=== PATIENT | male | born 2000 ===

== ENCOUNTER 2019-06-10 11:59 | Emergency (ER) | payer BC ==
--- NOTE | 2019-06-10 14:33 | EDM.PDOC ---
ED HPI GENERAL MEDICAL PROBLEM - General Chief Complaint: Gastrointestinal Problem Stated Complaint: VOMITTING BLOOD Time Seen by Provider: 06/10/19 13:33 - History of Present Illness INITIAL COMMENTS - FREE TEXT/NARRATIVE: 18-year-old gentleman no medical problems presenting to ED for bloody emesis. Patient had one episode of vomiting, red. Never happened to him before. After he vomited he felt right lower rib cage pain. The pain is described as mild. He denies any chest pain, denies shortness of breath, denies any dizziness. Of note the patient was drinking pink Gatorade before the episode of emesis. The patient does not recall any exacerbating or mitigating factors. Events occurred prior to arrival. right ribs Pain Score (Numeric/FACES): 5 - Related Data Allergies Allergy/AdvReac Type Severity Reaction Status Date / Time Tussins Allergy Severe Airway Uncoded 08/03/15 23:13 Tightness steroids Allergy Other Uncoded 06/10/19 12:36 Home Meds: Home Meds RX: Topiramate 50 mg PO BID 06/10/19 [History] Past Medical History Neurological History: Reports: Head Trauma, Other (See Below) Other Neuro History: Benign Brain Tumor Social & Family History - Family History Family Medical History: Noncontributory - Tobacco Use Smoking Status *Q: Never Smoker - Recreational Drug Use Recreational Drug Use: No ED ROS GENERAL - Review of Systems Review Of Systems: See Below Constitutional: Reports: No Symptoms HEENT: Reports: No Symptoms Respiratory: Reports: No Symptoms Cardiovascular: Reports: No Symptoms Endocrine: Reports: No Symptoms GI/Abdominal: Reports: Hematemesis : Reports: No Symptoms Musculoskeletal: Reports: Muscle Pain Skin: Reports: No Symptoms Neurological: Reports: No Symptoms Psychiatric: Reports: No Symptoms Hematologic/Lymphatic: Reports: No Symptoms Immunologic: Reports: No Symptoms ED EXAM, GI/ABD - Physical Exam Exam: See Below Text/Narrative:: The patient did not have any significant tenderness to palpation in the chest wall. He showed me a picture of the emesis, it was a small amount of light red emesis. No more than 20 to 30 cc. The patient appears comfortable in no distress speaking to his computer networker. During the examination he was smiling and in a good mood. Exam Limited By: No Limitations General Appearance: Alert, No Apparent Distress Head: Atraumatic Neck: Supple, Non-Tender Respiratory/Chest: Lungs Clear, Normal Breath Sounds, No Accessory Muscle Use, Chest Non-Tender Cardiovascular: Normal Peripheral Pulses, Regular Rate, Rhythm, No Gallop, No JVD, No Murmur, No Rub GI/Abdominal Exam: Soft, Non-Tender (Male) Exam: Deferred Rectal (Males) Exam: Normal Exam, Other (Brown Hemoccult negative stool) Back Exam: Normal Inspection Extremities: Normal Inspection Course - Vital Signs Last Recorded V/S: Last Vital Signs Temp 97.5 F 06/10/19 12:34 Pulse 58 L 06/10/19 12:34 Resp 18 06/10/19 12:34 BP 135/60 06/10/19 12:34 Pulse Ox 98 06/10/19 12:34 - Orders/Labs/Meds Labs: Laboratory Tests 06/10/19 06/10/19 Range/Units 14:22 14:22 WBC 7.31 (4.0-11.0) K/uL RBC 4.92 (4.50-5.90) M/uL Hgb 14.9 (13.0-17.0) g/dL Hct 44.8 (38.0-50.0) % MCV 91.1 (80.0-98.0) fL MCH 30.3 (27.0-32.0) pg MCHC 33.3 (31.0-37.0) g/dL RDW Std Deviation 41.4 (28.0-62.0) fl RDW Coeff of Julien 12 (11.0-15.0) % Plt Count 234 (150-400) K/uL MPV 9.50 (7.40-12.00) fL Neut % (Auto) 54.1 (48.0-80.0) % Lymph % (Auto) 33.0 (16.0-40.0) % [place] % (Auto) 8.6 (0.0-15.0) % Eos % (Auto) 4.2 (0.0-7.0) % Baso % (Auto) 0.1 (0.0-1.5) % Neut # (Auto) 4.0 (1.4-5.7) K/uL Lymph # (Auto) 2.4 (0.6-2.4) K/uL [place] # (Auto) 0.6 (0.0-0.8) K/uL Eos # (Auto) 0.3 (0.0-0.7) K/uL Baso # (Auto) 0.0 (0.0-0.1) K/uL Nucleated RBC % 0.0 /100WBC Nucleated RBCs # 0 K/uL Sodium 141 (136-148) mmol/L Potassium 4.0 (3.5-5.1) mmol/L Chloride 109 H (98-107) mmol/L Carbon Dioxide 25.5 (21.0-32.0) mmol/L BUN 13 (7.0-18.0) mg/dL Creatinine 0.9 (0.8-1.3) mg/dL Est Cr Clr Drug Dosing 122.41 mL/min Estimated GFR (MDRD) > 60.0 ml/min Glucose 91 (74-106) mg/dL Calcium 9.0 (8.5-10.1) mg/dL Total Bilirubin 0.3 (0.2-1.0) mg/dL AST 20 (15-37) IU/L ALT 40 (14-63) IU/L Alkaline Phosphatase 89 (46-116) U/L Total Protein 7.5 (6.4-8.2) g/dL Albumin 4.0 (3.4-5.0) g/dL Globulin 3.5 (2.6-4.0) g/dL Albumin/Globulin Ratio 1.1 (0.9-1.6) Lipase 56 L (73-393) U/L Meds: Medications Discontinued Medications Generic Name Dose Route Start Last Admin Trade Name Freq PRN Reason Stop Dose Admin Acetaminophen 650 mg 06/10/19 14:56 06/10/19 15:08 Tylenol PO 06/10/19 14:57 650 mg NOW ONE Administration - Re-Assessments/Exams Free Text/Narrative Re-Assessment/Exam: 06/10/19 16:13 No leuokocytosis the patient has remained hemodynamically stable no tachycardia afebrile. Repeat abdominal exam was soft nontender nondistended. No tenderness to palpation along the chest the rib cage discomfort had improved significantly. hgbn was normal. No signs of active upper or lower GI bleed based on exam and work-up,and his symptoms. Return precautions were discussed with the patient. Patient was drinking pink gatorade prior to emesis, it is possible that he vomited once due to this and had the bloody appearance as well. I educated him on signs of gib and told him to return if he devleoped chest pain or abdominal pain. he verbalized understanding and was ok with the plan. Departure - Departure Time of Disposition: 16:16 Disposition: Home, Self-Care 01 Clinical Impression: Gastroenteritis, Vomiting, Bleeding - Discharge Information Instructions: Vomiting, Adult Referrals: Valentine Diaz MD [Primary Care Provider] - Forms: ED Department Discharge Additional Instructions: To ED if you develop black stool, dizziness, abdominal pain, vomiting blood, fever, chest pain, bloody stools or any concerns. The following information is given to patients seen in the emergency department who are being discharged to home. This information is to outline your options for follow-up care. We provide all patients seen in our emergency department with a follow-up referral. The need for follow-up, as well as the timing and circumstances, are variable depending upon the specifics of your emergency department visit. If you don't have a primary care physician on staff, we will provide you with a referral. We always advise you to contact your personal physician following an emergency department visit to inform them of the circumstance of the visit and for follow-up with them and/or the need for any referrals to a consulting specialist. The emergency department will also refer you to a specialist when appropriate. This referral assures that you have the opportunity for follow-up care with a specialist. All of these measure are taken in an effort to provide you with optimal care, which includes your follow-up. Under all circumstances we always encourage you to contact your private physician who remains a resource for coordinating your care. When calling for follow-up care, please make the office aware that this follow-up is from your recent emergency room visit. If for any reason you are refused follow-up, please contact the [facility] Emergency Department at and asked to speak to the emergency department charge nurse. Kip Barney [facility] - Internal Medicine [address] [place] [id number] Sepsis Event Note - Evaluation Sepsis Screening Result: No Definite Risk - Focused Exam Vital Signs: Vital Signs Temp Pulse Resp BP Pulse Ox 02/25/20 12:34 97.5 F 58 L 18 135/60 98 Date Exam was Performed: 06/10/19 Time Exam was Performed: 16:13
[2019-06-10] MEDS ORDERED: Acetaminophen 325 MG Tab PO ONE (14:56)
--- NOTE | 2019-06-10 15:05 | CR ---
Chest: 2 views of the chest were obtained. Comparison: Prior chest x-ray of 05/14/19. Heart size and mediastinum are normal. Lungs are clear. Bony structures are within normal limits for the patient's age. Impression: 1. Nothing acute is appreciated on 2 view chest x-ray. 2. No change from previous chest x-ray is seen. Diagnostic code #1 This report was dictated in [place] Standard Time
[2019-06-10 15:19] LABS: BLOOD UREA NITROGEN,BUN 13 mg/dL (7.0-18.0); CARBON DIOXIDE,CO2 25.5 mmol/L (21.0-32.0); CHLORIDE,CL 109 mmol/L (98-107); GLUCOSE RANDOM 91 mg/dL (74-106); LIPASE 56 U/L (73-393); SODIUM,NA 141 mmol/L (136-148)
[2019-06-10 16:31] VITALS: BP 125/68; PULSE 65
== END 2019-06-10 16:31 | disposition home or self-care (01) ==
LOC: MW.ED 11:59
DX: K52.9 Noninfective gastroenteritis and colitis, unspecified (principal); K92.0 Hematemesis; Z88.8 Allergy status to other drugs, medicaments and biological substances
CPT/HCPCS: 36415; 71046; 80053; 83690; 85025; 99285; A9270; 99283